=== PATIENT | male | born 1940 | race Caucasian/White ===

== ENCOUNTER 2020-10-24 10:02 | Emergency (ER) | payer MEDICARE ==
[2020-10-24 10:30] LABS: BASOPHIL 0.5 % (0-2); EOSINOPHIL 4.9 % (0-7); HCT 42.2 % (42.0-52.0); HGB 13.5 g/dl (13.2-18.0); LYMPHOCYTE 21.8 % (15-48); MCH 30.1 pg (25.0-31.0); MONOCYTE 9.9 % (0-12); MPV 9.5 fL (6.0-9.5); NEUTROPHIL 62.7 % (41-80); NRBC 0; PLT 188 K/uL (150-400); RBC 4.49 M/uL (4.70-6.00); RDW 13.7 % (11.5-14.0); WBC 8.2 K/uL (4.0-10.5)
[2020-10-24 10:50] LABS: INR 1.09 (0.9-1.2); PROTHROMBIN TIME 13.4 SECONDS (11.4-13.6); PTT 28.6 SECONDS (22.2-34.7)
[2020-10-24 10:59] LABS: ALBUMIN 3.7 g/dL (3.4-5.0); BILIRUBIN - TOTAL 0.5 mg/dL (0.2-1.0); BUN/CREAT RATIO (CALC) 28.2 RATIO; CREATININE 1.03 mg/dL (0.67-1.17); GLOBULIN (CALCULATION) 2.6 g/dL; POTASSIUM 4.3 mmol/L (3.5-5.1); TOTAL PROTEIN 6.3 g/dL (6.4-8.2)
== END 2020-10-24 13:44 | disposition home or self-care (01) ==
LOC: FER 10:02
PROVIDERS: Emergency Medicine
DX: R07.89 Other chest pain (principal); I45.10 Unspecified right bundle-branch block; Z85.46 Personal history of malignant neoplasm of prostate; Z98.890 Other specified postprocedural states
CPT/HCPCS: 36415; 71045; 80053; 84484; 85025; 85610; 85730; 93005